=== PATIENT | female | born 1985 | race Caucasian/White ===

== ENCOUNTER 2019-04-05 03:10 | Inpatient (IN) | payer OTHER ==
[~2019-04-05] VITALS: Ht 149.9 cm; Wt 65.3 kg
[2019-04-05 04:00] VITALS: BP 117/73
[2019-04-05] MEDS ORDERED: OXYTOCIN 30 UNITS/LACT RINGERS 500 ML IV ONE (04:37)
[2019-04-05] MEDS ORDERED: RINGERS SOLUTION,LACTATED 1,000 ML IV ONE (04:37)
[2019-04-05] MEDS ORDERED: MINERAL OIL 30 ML UDCUP VG ONE (04:45)
[2019-04-05] MEDS ORDERED: CITRIC ACID/SODIUM CITRATE 30 ML SOLUTION UDCUP PO PRN (04:45)
[2019-04-05] MEDS ORDERED: LIDOCAINE/PF 1% 30 ML VIAL INJ PRN (04:45)
[2019-04-05] MEDS ORDERED: METOCLOPRAMIDE HCL 5 MG/ML 2 ML VIAL IVP PRN (04:45)
[2019-04-05] MEDS: RINGERS SOLUTION,LACTATED 1,000 ML IV SCH ×3 (05:00→17:40)
[2019-04-05 05:22] LABS: BASOPHILS % (AUTO) 0.3 % (0.0-2.0); EOSINOPHILS % (AUTO) 0 % (1.0-6.0); HEMATOCRIT 35.6 % (36-46); HEMOGLOBIN 11.9 g/dL (12.0-16.0); LYMPHOCYTES # (AUTO) 1.8 K/uL (1.0-4.8); MEAN CORPUSCULAR HEMOGLOBIN 30.9 pg (26.0-34.0); MEAN CORPUSCULAR HGB CONC 33.4 G/dL (31.0-37.0); MEAN CORPUSCULAR VOLUME 93 fL (80-100); MONOCYTES # (AUTO) 0.7 K/uL (0.1-1.0); MONOCYTES % (AUTO) 5.4 % (2.0-9.0); NEUTROPHILS # (AUTO) 11.2 K/uL (1.8-7.7); NEUTROPHILS % (AUTO) 81.3 % (40.0-70.0); PLATELET COUNT (AUTO)-OB 125 K/uL (150-450); RED BLOOD CELL COUNT(AUTO) 3.85 MIL/uL (4.00-5.20); RED CELL DISTRIBUTION WIDTH 12.9 % (11.5-14.5)
[2019-04-05] MEDS ORDERED: ROPIVACAINE HCL/PF 0.2% 100 ML ED ONE (05:25)
[2019-04-05] MEDS: FentaNYL CITRATE-PF 100 MCG/2 ML VIAL IVP PRN ×2 (05:26→05:29)
[2019-04-05] MEDS ORDERED: DiphenhydrAMINE HCL 50 MG/ML VIAL IVP PRN (06:00)
[2019-04-05] MEDS ORDERED: ROPIVACAINE HCL/PF 0.2% 100 ML ED PRN (06:00)
[2019-04-05] MEDS ORDERED: ONDANSETRON HCL 4 MG/2 ML VIAL IVP PRN (06:00)
[2019-04-05 06:09] LABS: PLATELET MORPHOLOGY COMMENT LARGE PLTS PRESENT
[2019-04-05] MEDS ORDERED: OXYTOCIN 30 UNITS/LACT RINGERS 500 ML IV PRN (08:14)
[2019-04-05] MEDS ORDERED: METOPROLOL TARTRATE 5 MG/5 ML VIAL IVP ONE (12:00)
[2019-04-05] MEDS ORDERED: DEXAMETHASONE SOD PHOS 4 MG/ML VIAL IVP ONE (12:00)
[2019-04-05] MEDS ORDERED: ONDANSETRON HCL 4 MG/2 ML VIAL IVP ONE (12:00)
[2019-04-05] MEDS ORDERED: KETOROLAC TROMETHAMINE 60 MG/2 ML VIAL IM ONE (12:00)
[2019-04-05] MEDS ORDERED: LIDOCAINE/PF 2% 5 ML SYRINGE IVP ONE (12:00)
[2019-04-05] MEDS ORDERED: METOCLOPRAMIDE HCL 5 MG/ML 2 ML VIAL IVP ONE (12:00)
[2019-04-05] MEDS ORDERED: AMPICILLIN SODIUM 2 GM/NS 100 ML IV ONE (19:00)
[2019-04-05] MEDS ORDERED: AMPICILLIN SODIUM 1 GM/NS 50 ML IV SCH (23:00)
[2019-04-05] MEDS ORDERED: MINERAL OIL 30 ML UDCUP ONE (23:06)
[2019-04-05] MEDS ORDERED: MIDAZOLAM HCL 2 MG/2 ML VIAL ONE (23:20)
[2019-04-05] MEDS ORDERED: KETAMINE HCL 50 MG/ML 10 ML VIAL ONE (23:21)
[2019-04-05] MEDS ORDERED: MORPHINE SULFATE/PF 1 MG/ML 10 ML AMP ONE (23:21)
[2019-04-05] MEDS ORDERED: GUM MASTIC/STORAX/MSAL/ALCOHOL LIQUID 0.67 ML VIAL TP ONE (23:31)
[2019-04-06] MEDS ORDERED: LIDOCAINE/PF 2% 5 ML VIAL ONE
[2019-04-06] MEDS ORDERED: RINGERS SOLUTION,LACTATED 1,000 ML IV ONE (02:15)
[2019-04-06] MEDS ORDERED: LANOLIN 7 GM OINTMENT TP PRN (03:30)
[2019-04-06] MEDS: RINGERS SOLUTION,LACTATED 1,000 ML IV SCH ×2 (04:11→12:56)
[2019-04-06] MEDS: KETOROLAC TROMETHAMINE 30 MG/ML VIAL IVP SCH ×2 (06:21→12:57)
[2019-04-06] MEDS ORDERED: OXYGEN THERAPY IH SCH (08:00)
[2019-04-06] MEDS: MAGNESIUM HYDROXIDE SUSPENSION 30 ML UDCUP PO SCH ×2 (09:00→19:59)
[2019-04-06] MEDS ORDERED: OxyCODONE HCL/ACETAMINOPHEN 5-325 MG TABLET PO PRN ×2 (12:00)
[2019-04-06] MEDS: OxyCODONE HCL/ACETAMINOPHEN 5-325 MG TABLET PO PRN (20:00)
[2019-04-07] MEDS ORDERED: OxyCODONE HCL/ACETAMINOPHEN 5-325 MG TABLET PO PRN ×2
[2019-04-07] MEDS: OxyCODONE HCL/ACETAMINOPHEN 5-325 MG TABLET PO PRN ×2 (03:04→13:16)
[2019-04-07] MEDS: IBUPROFEN 800 MG TABLET PO PRN ×2 (03:04→13:16)
[2019-04-07] MEDS ORDERED: IBUPROFEN 800 MG TABLET PO PRN (06:00)
[2019-04-07 06:36] LABS: BASOPHILS % (AUTO) 0.2 % (0.0-2.0); EOSINOPHILS % (AUTO) 0.1 % (1.0-6.0); LYMPHOCYTES # (AUTO) 2.1 K/uL (1.0-4.8); LYMPHOCYTES % (AUTO) 13.4 % (22.0-44.0); MEAN CORPUSCULAR HEMOGLOBIN 31.6 pg (26.0-34.0); MEAN CORPUSCULAR HGB CONC 33.6 G/dL (31.0-37.0); MEAN CORPUSCULAR VOLUME 94 fL (80-100); MONOCYTES # (AUTO) 0.9 K/uL (0.1-1.0); MONOCYTES % (AUTO) 5.9 % (2.0-9.0); NEUTROPHILS # (AUTO) 12.6 K/uL (1.8-7.7); NEUTROPHILS % (AUTO) 80.4 % (40.0-70.0); PLATELET COUNT (AUTO)-OB 127 K/uL (150-450); RED BLOOD CELL COUNT(AUTO) 1.87 MIL/uL (4.00-5.20); RED CELL DISTRIBUTION WIDTH 13.2 % (11.5-14.5)
[2019-04-07 06:44] LABS: HEMOGLOBIN 5.9 g/dL (12.0-16.0)
[2019-04-07 06:45] LABS: HEMATOCRIT 17.6 % (36-46)
[2019-04-07] MEDS ORDERED: SODIUM CHLORIDE 0.9% 100 ML ONE (07:33)
[2019-04-07] MEDS: SOD FERRIC GLUC COMPLX/SUCROSE 125 MG in SODIUM CHLORIDE 0.9% 100 ML IV SCH (08:12)
[2019-04-07 08:17] LABS: PLATELET MORPHOLOGY COMMENT LARGE PLTS PRESENT
[2019-04-07] MEDS: MAGNESIUM HYDROXIDE SUSPENSION 30 ML UDCUP PO SCH ×2 (08:18→21:25)
[2019-04-07 12:04] LABS: BASOPHILS % (AUTO) 0.1 % (0.0-2.0); EOSINOPHILS % (AUTO) 0.1 % (1.0-6.0); LYMPHOCYTES # (AUTO) 2.2 K/uL (1.0-4.8); LYMPHOCYTES % (AUTO) 12.7 % (22.0-44.0); MEAN CORPUSCULAR HEMOGLOBIN 31.9 pg (26.0-34.0); MEAN CORPUSCULAR HGB CONC 33.8 G/dL (31.0-37.0); MEAN CORPUSCULAR VOLUME 95 fL (80-100); MONOCYTES % (AUTO) 6.1 % (2.0-9.0); NEUTROPHILS # (AUTO) 13.9 K/uL (1.8-7.7); PLATELET COUNT (AUTO)-OB 163 K/uL (150-450); RED BLOOD CELL COUNT(AUTO) 2.06 MIL/uL (4.00-5.20)
[2019-04-07 12:19] LABS: HEMOGLOBIN 6.6 g/dL (12.0-16.0)
[2019-04-07 12:20] LABS: HEMATOCRIT 19.5 % (36-46)
[2019-04-07 12:21] LABS: PLATELET MORPHOLOGY COMMENT LARGE PLTS PRESENT
[2019-04-07] MEDS: SENNA/DOCUSATE SODIUM 8.6-50 MG TABLET PO SCH (15:25)
[2019-04-08] MEDS: SENNA/DOCUSATE SODIUM 8.6-50 MG TABLET PO SCH ×2 (00:03→08:28)
[2019-04-08] MEDS: IBUPROFEN 800 MG TABLET PO PRN (04:15)
[2019-04-08] MEDS: MAGNESIUM HYDROXIDE SUSPENSION 30 ML UDCUP PO SCH (08:27)
[2019-04-08] MEDS: SOD FERRIC GLUC COMPLX/SUCROSE 125 MG in SODIUM CHLORIDE 0.9% 100 ML IV SCH (08:28)
[2019-04-08] MEDS ORDERED: PERCT PO (09:19)
[2019-04-08] MEDS ORDERED: IBUP-2071 PO (09:20)
[2019-04-08] MEDS ORDERED: DSS100 PO (09:21)
[2019-04-08] MEDS ORDERED: FERR-89 PO (09:22)
== END 2019-04-08 10:45 | disposition home or self-care (01) | DRG 788 ==
LOC: 4S 03:10 → OBSVTOIN 03:10 → 4S 04-06 02:15
PROVIDERS: ADMIT Obstetrics & Gynecology; ATTEND Obstetrics & Gynecology
PROC: 10D00Z1 Extraction of Products of Conception, Low, Open Approach (ICD-10-PCS; principal; 2019-04-06)
DX: O62.0 Primary inadequate contractions (principal); Z3A.38 38 weeks gestation of pregnancy; Z37.0 Single live birth
CPT/HCPCS: 86850; 86900; 86901; J0290; J0690; J1100; J1885; J2250; J2405; J2590; J2765; J2795; J2916; J3010; J3490; J7050; J7120